=== PATIENT | male | born 1965 | race Caucasian/White ===

== ENCOUNTER → 2022-11-27 09:54 | Outpatient (CLI) | payer BC, SELFPAY ==
[2022-11-27 10:48] LABS: Add Manual Diff / Slide Review NO; Basophils Absolute Auto 0 /uL (0-100); Eosinophils Absolute Auto 100 /uL (0-450); Eosinophils Percent Auto 1.4 % (2-4); Hematocrit 40.8 % (41-53); Hemoglobin 14.3 g/dL (13.5-17.5); Lymphocytes Absolute Auto 1600 /uL (1100-4500); Lymphocytes Percent Auto 37.6 % (25-40); Mean Corpuscular Hemoglobin 29.8 PG (26-34); Mean Corpuscular Volume 85.2 fL (80-100); Monocytes Absolute Auto 400 /uL (0-900); Monocytes Percent Auto 8.3 % (3-14); Neutrophils Absolute Auto 2200 /uL (1500-7000); Neutrophils Percent Auto 51.7 % (50-75); Platelet Count 220 X10^3/uL (150-400); Red Blood Cell Count 4.79 X10^6/uL (4.5-5.9); Red Cell Distribution Width 13.8 % (11.6-14.8); White Blood Cell Count 4.3 X10^3/uL (4.5-11.0)
[2022-11-27 11:40] LABS: Testosterone 857 ng/dL (71.8-623)
== END ==
PROVIDERS: Referring Provider Urology; Visit Provider Urology
DX: E29.1 Testicular hypofunction (principal)
CPT/HCPCS: 36415; 84403; 85025

== ENCOUNTER → 2023-02-04 13:57 | Outpatient (CLI) | payer BC, SELFPAY ==
--- NOTE | 2023-02-04 | DI.RAD.S_ITS ---
PROCEDURE: XR SHOULDER RT MIN 2V INDICATIONS: shoulder pain TECHNIQUE: 3 views of the shoulder were acquired. COMPARISON: None. FINDINGS: Bones: Focal 1.5 benign cystic lesion noted in the humeral neck associated with prior surgical intervention. Old healed right-sided rib fractures Soft tissues: No suspicious soft tissue calcifications. IMPRESSION: Benign-appearing proximal right humeral cystic lesion. Correlate with any prior imaging available to assess for interval change. Approved by: Zaheer Howard M.D. on 02/04/2023 at 16:31
--- NOTE | 2023-02-04 | DI.RAD.S_ITS ---
PROCEDURE: XR CERVICAL SPINE 2V OR 3V INDICATIONS: neck pain TECHNIQUE: 3 view(s) of the cervical spine were acquired. COMPARISON: None. FINDINGS: Bones: C4-5 and C5-6 anterior cervical discectomy and fusion with anterior plate and screw hardware in good position. Good graft incorporation present. Mild C3-4 disc space narrowing and marginal osteophyte present. Craniovertebral relationships are normal. Soft tissues: No prevertebral soft tissue swelling. IMPRESSION: Mid cervical instrumented discectomy and fusion. No hardware failure loosening. Approved by: Zaheer Howard M.D. on 02/04/2023 at 16:34
== END ==
PROVIDERS: Referring Provider Student in an Organized Health Care Education/Training Program; Visit Provider Student in an Organized Health Care Education/Training Program
DX: M54.2 Cervicalgia (principal); M25.511 Pain in right shoulder; M89.9 Disorder of bone, unspecified; Z98.1 Arthrodesis status
CPT/HCPCS: 72040; 73030

== ENCOUNTER 2023-02-19 11:19 | Emergency (ER) | payer BC, SELFPAY ==
[2023-02-19 11:23] VITALS: BP 148/95; PULSE 84; RESP 18; TEMP 36.9; O2SAT 99; BMI 25.8
--- NOTE | 2023-02-19 12:05 | ED.BACK ---
HPI - Back Pain/Injury <Graham Kearns PA-C - Last Filed: 02/19/23 12:39> General Chief Complaint: Back Pain/Injury Stated Complaint: back pain Time Seen by Provider: 02/19/23 11:55 Source: patient History of Present Illness HPI Narrative: 57-year-old male with chronic back issues presents to the ED with 2 days of acute on chronic exacerbation of mid back pain. Patient states he was lifting something heavy while he was moving a fountain in his yard, when he felt a spasm in his back, since when his back has been hurting with movements. Patient states he took some cyclobenzaprine without any relief. Patient denies numbness, tingling, weakness, saddle paresthesias, urinary hesitancy, urinary incontinence, bowel incontinence. Related Data Allergies Allergy/AdvReac Type Severity Reaction Status Date / Time No Known Drug Allergies Allergy Verified 02/19/23 11:23 Review of Systems <Graham Kearns PA-C - Last Filed: 02/19/23 12:39> Constitutional Constitutional: Denies chills, Denies fatigue, Denies fever(s), Denies frequent falls, Denies lethargy and Denies weakness Eyes Eyes: Denies change in vision, Denies eye discharge, Denies irritation and Denies loss of vision ENT Ears, Nose, Mouth, and Throat: Denies change in voice, Denies dizziness, Denies neck pain, Denies sore throat and Denies throat swelling Cardiovascular Cardiovascular: Denies chest pain, Denies irregular heart rhythm, Denies lightheadedness, Denies palpitations, Denies dyspnea, Denies dyspnea on exertion and Denies orthopnea Respiratory Respiratory: Denies cough, Denies dyspnea, Denies dyspnea on exertion and Denies wheezing Gastrointestinal Gastrointestinal: Denies abdominal pain, Denies change in bowel habits, Denies diarrhea, Denies nausea and Denies vomiting Musculoskeletal Musculoskeletal: Reports back pain, Denies neck pain and Denies numbness Integumentary/Breasts Skin/Breast: Denies pruritus, Denies erythema, Denies rash and Denies wounds Neurologic Neurologic: Denies behavioral changes, Denies confusion, Denies dizziness, Denies frequent falls, Denies loss of vision, Denies numbness and Denies weakness Psychiatric Psychiatric: Denies anxiety, Denies behavioral changes, Denies confusion, Denies depression, Denies homicidal ideation and Denies suicidal ideation Endocrine Endocrine: Denies fatigue, Denies flushing and Denies palpitations Hematologic/Lymphatic Hematologic/Lymphatic: Denies easy bruising Allergic/Immunologic Allergic/Immunologic: Denies urticaria, Denies throat swelling and Denies wheezing Patient History <Graham Kearns PA-C - Last Filed: 02/19/23 12:39> Social History Smoking Status: Never smoker Smoking Status: Never smoker alcohol intake frequency: a few times a week Substance Use Type: does not use Exam <Graham Kearns PA-C - Last Filed: 02/19/23 12:39> Narrative Exam Narrative: Const General:?cooperative, healthy appearing and comfortable HENTN Head:?normal to inspection Ears:?hearing grossly normal bilaterally Nose:?external nose normal Face and sinus:?normal facial exam and sinuses nontender Mouth:?oral mucosae normal Throat:?posterior oropharynx normal Eyes General:?appearance normal, both eyes and all related structures Neck Neck:?normal visual inspection and no lymphadenopathy noted Resp Effort & Inspection:?normal respiratory effort Auscultation:?clear to auscultation bilaterally Cardio Rate:?regular rate Rhythm:?regular rhythm Musculoskeletal No midline tenderness to palpation. No paraspinal tenderness to palpation. Strength and sensation is intact. There is full range of motion. Patient is neurovascularly intact. Neuro General:?patient alert, patient awake and patient oriented x3 Initial Vital Signs Initial Vital Signs: Vital Signs Temperature 98.4 F 02/19/23 11:23 Pulse Rate 84 02/19/23 11:23 Respiratory Rate 18 02/19/23 11:23 Blood Pressure 148/95 H 02/19/23 11:23 Pulse Oximetry 99 02/19/23 11:23 Oxygen Delivery Method Room Air 02/19/23 11:23 <Viral Abbott MD - Last Filed: 02/19/23 17:42> Initial Vital Signs Initial Vital Signs: Vital Signs Temperature 98.4 F 02/19/23 11:23 Pulse Rate 84 02/19/23 11:23 Respiratory Rate 18 02/19/23 11:23 Blood Pressure 148/95 H 02/19/23 11:23 Pulse Oximetry 99 02/19/23 11:23 Oxygen Delivery Method Room Air 02/19/23 11:23 Course <Graham Kearns PA-C - Last Filed: 02/19/23 12:39> Orders Ordered: Discontinued Medications Lidocaine (Lidocaine 5% Patch) 1 each TOP NOW ONE Stop: 02/19/23 12:11 Last Admin: 02/19/23 12:14 Dose: 1 each Documented By: [facility] Vital Signs Vital signs: Vital Signs - 8 hr 02/19/23 11:23 Temperature 98.4 F Pulse Rate 84 Respiratory Rate 18 Blood Pressure 148/95 H Pulse Oximetry 99 Oxygen Delivery Method Room Air <Viral Abbott MD - Last Filed: 02/19/23 17:42> Orders Ordered: Discontinued Medications Lidocaine (Lidocaine 5% Patch) 1 each TOP NOW ONE Stop: 02/19/23 12:11 Last Admin: 02/19/23 12:14 Dose: 1 each Documented By: OFELIA Vital Signs Vital signs: Vital Signs - 8 hr 02/19/23 11:23 Temperature 98.4 F Pulse Rate 84 Respiratory Rate 18 Blood Pressure 148/95 H Pulse Oximetry 99 Oxygen Delivery Method Room Air MDM - Back Pain/Injury <Graham Kearns PA-C - Last Filed: 02/19/23 12:39> MDM Narrative Medical decision making narrative: 57-year-old male with chronic back issues presents to the ED with 2 days of acute on chronic exacerbation of mid back pain. Physical exam is reassuring for no midline or paraspinal tenderness to palpation. Patient's symptoms most consistent with a musculoskeletal sprain/strain of the back. Recommend ibuprofen, lidocaine patches, follow-up with PCP as soon as possible. ED return precautions were discussed with patient. Patient verbalized understanding. Medical records reviewed: Yes Discharge Plan Departure Patient Disposition: Home Clinical Impression: Back pain Qualifiers: Back pain location: low back pain Chronicity: acute Back pain laterality: unspecified Sciatica presence: without sciatica Qualified Code(s): M54.50 - Low back pain, unspecified Instructions: DI for Back Strain or Sprain Activity Restrictions/Additional Instructions: Were evaluated in the ED today for back pain. It appears that you have a musculoskeletal sprain/strain of the back from the heavy lifting. You may take ibuprofen 800 mg 3 times a day with food, apply lidocaine patches. You may also take 1000 mg of Tylenol 3 times a day in addition to the ibuprofen. Please follow-up with your PCP as soon as possible for further evaluation. You may also follow-up with your physical therapist as planned. Return to the ED if you have worsening symptoms, numbness, tingling, weakness, urinary difficulties. Referrals: Selma Harrison, JOSE [Primary Care Provider] - Stand Alone Forms: Patient Portal/API ED Sign-out <Viral Abbott MD - Last Filed: 02/19/23 17:42> Cosign ED Attending Tian Attestation: I was immediately available in the department for consultation. Documentation has been reviewed. I agree with assessment and plan.
[2023-02-19] MEDS: LIDOCAINE 5% PATCH 1 EACH TOP (12:14)
== END 2023-02-19 12:20 | disposition home or self-care (01) ==
PROVIDERS: Emergency Provider Student in an Organized Health Care Education/Training Program; PCP Student in an Organized Health Care Education/Training Program
DX: M54.50 Low back pain, unspecified (principal)
CPT/HCPCS: 99282

== ENCOUNTER → 2023-04-17 09:58 | Outpatient (CLI) | payer BC, SELFPAY ==
[2023-04-17 11:37] LABS: Hematocrit 38.9 % (41-53); Hemoglobin 13.5 g/dL (13.5-17.5); Mean Corpuscular HGB Conc 34.9 % (30-36); Mean Corpuscular Hemoglobin 29.9 PG (26-34); Mean Corpuscular Volume 85.7 fL (80-100); Platelet Count 198 X10^3/uL (150-400); Red Blood Cell Count 4.53 X10^6/uL (4.5-5.9); Red Cell Distribution Width 13.4 % (11.6-14.8); White Blood Cell Count 4.1 X10^3/uL (4.5-11.0)
[2023-04-17 12:30] LABS: Testosterone 277 ng/dL (71.8-623)
== END ==
PROVIDERS: PCP Student in an Organized Health Care Education/Training Program; Referring Provider Urology; Visit Provider Urology
DX: E29.1 Testicular hypofunction (principal); R68.82 Decreased libido
CPT/HCPCS: 36415; 84403; 85027

== ENCOUNTER → 2023-09-15 08:34 | Outpatient (CLI) | payer BC, SELFPAY ==
[2023-09-15 09:31] LABS: Hematocrit 40.2 % (41-53); Mean Corpuscular HGB Conc 34.9 % (30-36); Mean Corpuscular Hemoglobin 29.6 PG (26-34); Mean Corpuscular Volume 84.9 fL (80-100); Platelet Count 195 X10^3/uL (150-400); Red Blood Cell Count 4.74 X10^6/uL (4.5-5.9); Red Cell Distribution Width 13.4 % (11.6-14.8); White Blood Cell Count 4.4 X10^3/uL (4.5-11.0)
[2023-09-15 10:32] LABS: Testosterone 438 ng/dL (71.8-623)
== END ==
PROVIDERS: PCP Student in an Organized Health Care Education/Training Program; Referring Provider Nurse Practitioner; Visit Provider Nurse Practitioner
DX: E29.1 Testicular hypofunction (principal); R68.82 Decreased libido
CPT/HCPCS: 36415; 84153; 84154; 84403; 85027

== ENCOUNTER 2023-12-06 17:21 | Emergency (ER) | payer BC, SELFPAY ==
[2023-12-06 17:26] VITALS: BP 153/89; PULSE 94; RESP 18; TEMP 37.1; O2SAT 96; BMI 24.5
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
[2023-12-06] MEDS: ACETAMINOPHEN 325 MG TABLET 650 MG PO (18:07)
== END 2023-12-06 19:03 | disposition home or self-care (01) ==
PROVIDERS: Emergency Provider Physician Assistant; PCP Student in an Organized Health Care Education/Training Program
DX: S76.312A Strain of muscle, fascia and tendon of the posterior muscle group at thigh level, left thigh, initial encounter (principal); X50.0XXA Overexertion from strenuous movement or load, initial encounter
CPT/HCPCS: 36415; 99283

== ENCOUNTER 2023-12-07 07:11 | Emergency (ER) | payer BC, SELFPAY ==
[2023-12-07 07:19] VITALS: BP 155/86; PULSE 97; RESP 18; TEMP 36.6; O2SAT 95; BMI 25.2
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
--- NOTE | 2023-12-07 07:25 | DI.MRI.S_ITS ---
PROCEDURE: MR FEMUR LT WO CON INDICATIONS: patient with pain to the hamstring with decreased strength TECHNIQUE: Noncontrast coronal and sagittal T1 spin echo and STIR; axial T1 spin echo and T2 fast spin echo with fat saturation through the left femur. COMPARISON: None. FINDINGS: Image quality: Excellent. Bones: No acute trabecular bone injury or fracture. No suspicious marrow replacing mass. Degenerative changes are noted in the left hip with subchondral cystic changes, not well evaluated on this exam. Soft tissues: There is high-grade versus complete tearing of the proximal biceps femoris tendon at the myotendinous junction with surrounding muscular edema. Mild edema is also seen within the semi tendinosis muscle belly compatible with a low-grade strain. The semimembranosus tendon and muscle appear to be intact. The hamstring tendon origin at the ischial tuberosity is intact. Edema and a small volume of hemorrhage are seen tracking along the hamstring tendons posteriorly. Edema surrounds the sciatic nerve without disruption of nerve fibers. The medial and anterior compartment musculature is intact. A physiologic amount of fluid is seen in the left knee. No inguinal lymphadenopathy. Included portions of the pelvis demonstrate mild diverticulosis without acute findings. IMPRESSION: 1. High-grade partial versus complete tearing of the proximal biceps femoris tendon at the myotendinous junction with surrounding soft tissue edema and a small amount of hemorrhage. Proximal tendon attachment to the ischial tuberosity remains intact. 2. Grade 1 strain of the semitendinosus muscle without tendon tearing. 3. Semimembranosus muscle and tendon are intact. Approved by: Sudhir Smith M.D. on 12/07/2023 at 8:42
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
[2023-12-07 09:01] VITALS: BP 145/86
[2023-12-07 09:02] VITALS: PULSE 92; O2SAT 97
[2023-12-07 09:17] VITALS: RESP 16
== END 2023-12-07 09:17 | disposition home or self-care (01) ==
PROVIDERS: Emergency Provider Student in an Organized Health Care Education/Training Program; PCP Student in an Organized Health Care Education/Training Program
DX: S76.812A Strain of other specified muscles, fascia and tendons at thigh level, left thigh, initial encounter (principal); X58.XXXA Exposure to other specified factors, initial encounter
CPT/HCPCS: 73718; 99283

== ENCOUNTER → 2023-12-16 19:03 | Outpatient (CLI) | payer BC, SELFPAY ==
--- NOTE | 2023-12-16 19:30 | DI.MRI.S_ITS ---
PROCEDURE: MR ANKLE LT WO CON INDICATIONS: left ankle pain TECHNIQUE: Noncontrast sagittal T1 spin echo and T2 fast spin echo with fat saturation, axial proton density fast spin echo and T2 fast spin echo with fat saturation, coronal T1 spin echo and T2 fast spin echo with fat saturation through the ankle/hindfoot. COMPARISON: [facility] [place], CR, XR CALCANEUS LEFT, 08/11/2023, 9:38. FINDINGS: Image quality: Excellent. Bones: Involving the majority of the calcaneal body and centered roughly along the angle of [place], there is a 3.4 x 5.9 x 3.5 cm multilobulated T1 isointense lesion with preserved internal trabeculations and small vessels (4/26; 6/9-15). There is almost complete signal saturation of the lesion on the T2 fat saturated sequences. The lesion extends to the anterior subtalar joint without cortical breakthrough (6/10) Approximately 3 areas of small cystic degeneration are present within the confines of the lesion (/-33). Additionally, the lateral borders the calcaneus are someone dysmorphic with minimal subcortical marrow edema (5/31), predominantly along the course of the peroneal tendons (4/27; 9/24). The bone marrow signal is otherwise normal. The anterior process of the calcaneus and lateral process of the talus are intact. No talar dome osteochondral defect is seen. Joints: There is no significant joint effusion. There is mild tibiotalar and subtalar osteoarthritis. Sinus tarsi: The sinus tarsi signal is normal. Syndesmotic ligaments: The anterior and posterior inferior syndesmotic ligaments are normal. Lateral collateral ligament: The lateral collateral ligaments are mildly thickened but without focal tears. Deltoid ligament: The visualized components of the deltoid ligament, that being the posterior tibiotalar and tibiospring ligaments, are normal. Calcaneonavicular spring ligament: The superomedial component of the calcaneonavicular spring ligament is grossly intact. Tendons: The Achilles tendon is normal. The extensor, flexor and peroneal tendons are normal. The peroneal tendons are appropriately situated within the retromalleolar groove, and the superficial peroneal retinaculum is intact. Plantar aponeurosis: Plantar calcaneal enthesopathy is present (6/8). There is mild abnormal thickening, abnormal intrasubstance signal involving, and perifascial edema involving the central band of the plantar fascia (10/15-). A small amount of marrow edema is present at the subjacent calcaneal cortex (10/20). Plantar musculature: There are no findings of denervation involving the plantar muscles of the foot. Nerves: The visualized nerves are unremarkable. Other: No other acute abnormality. IMPRESSION: 1. 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 2. Findings suggestive of mild plantar fasciitis involving the central band at the heel. 3. Mild tibiotalar osteoarthritis. 4. Mild subtalar osteoarthritis. 5. Mild, prior sprains of the lateral collateral ligaments. Dictated by: Mert Camacho M.D. on 12/17/2023 at 8:57 Approved by: Mert Camacho M.D. on 12/17/2023 at 9:25
== END ==
PROVIDERS: PCP Student in an Organized Health Care Education/Training Program; Referring Provider Podiatrist; Visit Provider Podiatrist
DX: M19.072 Primary osteoarthritis, left ankle and foot (principal); S93.492A Sprain of other ligament of left ankle, initial encounter; M79.672 Pain in left foot
CPT/HCPCS: 73721

== ENCOUNTER → 2024-01-26 09:22 | Outpatient (CLI) | payer BC, SELFPAY ==
--- NOTE | 2024-01-26 09:23 | DI.NM.S_ITS ---
PROCEDURE: NM BONE 3 PHASE RADIOPHARMACEUTICAL: 22.5 mCi Tc-99m MDP IV. INDICATIONS: NEW LEFT HEAL PAIN,H/O UNICAMERAL CALC CYST TECHNIQUE: Multiple bone scintigrams were obtained after intravenous injection of Tc-99m MDP, including flow, blood pool, and delayed images centered to the region of interest. COMPARISON: [facility] [place], CR, XR CALCANEUS LEFT, 08/11/2023, 9:38. [facility], MR, MR ANKLE LT WO CON, 12/16/2023, 19:21. FINDINGS: No appreciable increased flow or blood pool. Delayed images demonstrate scattered areas of uptake within the feet bilaterally. Focus of uptake is identified within the mid calcaneus. IMPRESSION: Delayed images demonstrate uptake within the feet likely related to degenerative change. Small focus of uptake is noted within the calcaneus this is overall nonspecific, given lack increased lower blood pool. 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 Dictated by: Kaylie Almaraz M.D. on 01/26/2024 at 16:40 Approved by: Kaylie Almaraz M.D. on 01/26/2024 at 16:45
== END ==
PROVIDERS: PCP Student in an Organized Health Care Education/Training Program; Referring Provider Podiatrist; Visit Provider Podiatrist
DX: D17.24 Benign lipomatous neoplasm of skin and subcutaneous tissue of left leg (principal)
CPT/HCPCS: 78315; A9503

== ENCOUNTER → 2024-02-23 07:58 | Outpatient (CLI) | payer BC, SELFPAY ==
[2024-02-23 10:30] LABS: Testosterone 445 ng/dL (71.8-623)
== END ==
LOC: LAB 08:00
PROVIDERS: PCP Student in an Organized Health Care Education/Training Program; Referring Provider Nurse Practitioner Adult Health; Visit Provider Nurse Practitioner Adult Health
DX: E29.1 Testicular hypofunction (principal)
CPT/HCPCS: 36415; 84403